=== PATIENT | male | born 1975 ===

== ENCOUNTER 2025-06-07 00:53 | Emergency (ER) | payer BC, OTHER ==
[2025-06-07] MEDS: Ketorolac 60 MG/2 ML SDV IM ONE (01:28)
[2025-06-07] MEDS: Orphenadrine 60 MG/2 ML Inj IM ONE (01:28)
== END 2025-06-07 03:59 | disposition home or self-care (01) ==
LOC: MW.ED 00:53
DX: M62.830 Muscle spasm of back (principal); Z88.0 Allergy status to penicillin; Z79.899 Other long term (current) drug therapy
CPT/HCPCS: 96372; 99284; A9270; J1171; J1885; J2360; 99283